=== PATIENT | female | born 1975 | race African-American/Black ===

== ENCOUNTER 2021-09-14 13:15 | Emergency (ER) | payer OTHER ==
[2021-09-14] MEDS ORDERED: Ondansetron PF 4 MG/2 ML Vial ONE (14:30)
[2021-09-14] MEDS ORDERED: Morphine 4 MG/ML VIAL ONE (14:30)
== END 2021-09-14 15:29 | disposition home or self-care (01) ==
LOC: ERS 13:15
DX: S23.3XXA Sprain of ligaments of thoracic spine, initial encounter (principal); S33.5XXA Sprain of ligaments of lumbar spine, initial encounter; M26.9 Dentofacial anomaly, unspecified; E11.9 Type 2 diabetes mellitus without complications; I10 Essential (primary) hypertension; W19.XXXA Unspecified fall, initial encounter
CPT/HCPCS: 70450; 71045; 72070; 72100; 72125; 96374; 96375; J2270; J2405